=== PATIENT | male | born 1985 | race Hispanic/Latino ===

== ENCOUNTER 2019-06-15 20:32 | Emergency (ER) | payer OTHER ==
[~2019-06-15] VITALS: Ht 193 cm; Wt 79.4 kg
[2019-06-15] MEDS: ACETAMINOPHEN 325 MG TAB PO ONE (21:23)
--- NOTE | 2019-06-15 22:09 | Diagnostic Imaging Report ---
EXAMINATION: CHEST 2 VIEWS INDICATION: Fever, cough. COMPARISON: None FINDINGS: TUBES and LINES: None. LUNGS: Hyperinflated lungs. Mild bronchial thickening. There is no evidence of pneumonia or pulmonary edema. Possible calcified granuloma in the right upper lung. PLEURA: No pleural effusion or pneumothorax. HEART AND MEDIASTINUM: The cardiomediastinal silhouette is unremarkable. BONES AND SOFT TISSUES: No acute osseous lesion. Soft tissues are unremarkable. UPPER ABDOMEN: No free air under the diaphragm. IMPRESSION: Hyperinflated lungs with mild bronchial wall thickening, which may represent bronchitis/reactive airways disease. No evidence of lobar pneumonia. Signed by: Dr. Liliana Red MD on 06/15/2019 10:06 PM
[2019-06-15] MEDS: IBUPROFEN 600 MG TAB PO STA (22:19)
[2019-06-15 22:47] VITALS: BP 144/84
== END 2019-06-15 22:54 | disposition home or self-care (01) ==
LOC: ER 20:32
DX: R50.9 Fever, unspecified (principal); R05 Cough; J20.9 Acute bronchitis, unspecified
CPT/HCPCS: 71046; 83518; 87070; 87400; 99283

== ENCOUNTER 2023-01-18 12:57 | Emergency (ER) | payer SELFPAY ==
[~2023-01-18] VITALS: Ht 190.5 cm; Wt 88.5 kg
[2023-01-18] MEDS ORDERED: SODIUM CHLORIDE 0.9% 1000ML 1,000 ML IV ONE (13:30)
[2023-01-18] MEDS ORDERED: DEXAMETHASONE SOD PHOS 10 MG/1 ML VIAL IM ONE (13:30)
[2023-01-18] MEDS ORDERED: ALBUTEROL/IPRATROPIUM 3 ML NEB NEB ONE (13:30)
[2023-01-18 13:57] LABS: BASOPHILS # (AUTO) 0.1 (0.0-0.1); BASOPHILS % 0.4 % (0.0-1.0); EOSINOPHILS # (AUTO) 0.1 (0.0-0.4); EOSINOPHILS % 0.7 % (0.0-6.0); HEMATOCRIT 44.1 % (38.2-49.6); HEMOGLOBIN 15.1 g/dL (14.0-18.0); LYMPHOCYTES # (AUTO) 1.8 (1.0-3.2); LYMPHOCYTES % 10.7 % (18.0-39.1); MEAN CORPUSCULAR HEMOGLOBIN 29.6 pg (28-32); MEAN CORPUSCULAR HGB CONC 34.2 g/dL (31-35); MEAN CORPUSCULAR VOLUME 86.5 fL (81-99); MONOCYTES % 6.1 % (4.4-11.3); NEUTROPHILS # (AUTO) 13.5 (2.1-6.9); NEUTROPHILS % 81.6 % (38.7-80.0); PLATELET COUNT 411 x10e3/uL (140-360); RED CELL DISTRIBUTION WIDTH 13.2 % (11.7-14.4); WHITE BLOOD COUNT 16.56 x10e3/uL (4.8-10.8)
[2023-01-18 14:14] LABS: ANION GAP 14.9 mmol/L (8-16); CALCIUM 10.5 mg/dL (8.4-10.2); CREATININE, SERUM 0.96 mg/dL (0.72-1.25); POTASSIUM 3.9 mmol/L (3.5-5.1)
[2023-01-18 14:15] VITALS: PULSE 75; RESP 22; O2SAT 98
[2023-01-18] MEDS ORDERED: KETOROLAC TROMETHAMINE 30 MG/ML VIAL IV STA (14:24)
[2023-01-18] MEDS ORDERED: PENICILLIN G BENZATHINE LA 1.2 MU TBX IM STA (14:26)
[2023-01-18] MEDS ORDERED: IOPAMIDOL 370 MG/ML 100 ML INFUS..BTL INJ ONE (14:41)
[2023-01-18] MEDS ORDERED: BENZOCAINE 20% SPR 60 ML CAN MT ONE (16:00)
[2023-01-18] MEDS ORDERED: LIDOCAINE HCL 1% 2 ML AMP INJ ONE (16:00)
[2023-01-18] MEDS ORDERED: CLEOCIN HCL300 MG PO ×2 (16:05→16:07)
[2023-01-18] MEDS ORDERED: PREDNISONE20 MG PO ×2 (16:05→16:07)
[2023-01-18] MEDS ORDERED: KETOROLAC TROME10 MG PO ×2 (16:05→16:07)
== END 2023-01-18 17:10 | disposition home or self-care (01) ==
LOC: ER 13:01
DX: J02.0 Streptococcal pharyngitis (principal)
CPT/HCPCS: 36415; 42700; 70491; 80048; 83518; 85025; 99284; J0561; J1100; J1885; J7030; Q9967; J2001